=== PATIENT | male | born 1970 | race Hispanic/Latino ===

== ENCOUNTER 2025-01-27 20:49 | Emergency (ER) | payer OTHER ==
[~2025-01-27] VITALS: Ht 165.1 cm; Wt 75.7 kg
[2025-01-27 21:04] VITALS: PULSE 87; RESP 18; TEMP 97.6
[2025-01-27] MEDS ORDERED: CHLORHEXIDINE473 ML PO (21:34)
[2025-01-27] MEDS ORDERED: VALTREX1000 MG PO (21:34)
[2025-01-27 21:40] VITALS: BP 177/86; PULSE 87; RESP 18; TEMP 97.6; O2SAT 100
== END 2025-01-27 21:40 | disposition home or self-care (01) ==
LOC: FSED 21:06
DX: K12.1 Other forms of stomatitis (principal); I10 Essential (primary) hypertension
CPT/HCPCS: 99282